=== PATIENT | male | born 2000 | race Hispanic/Latino ===

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

== ENCOUNTER 2022-01-11 21:38 | Emergency (ER) | payer MEDICAID ==
[~2022-01-11] VITALS: Ht 181.6 cm; Wt 64.9 kg
[2022-01-11] MEDS: ACETAMINOPHEN 500 MG TABLET PO ONE (22:45)
[2022-01-11] MEDS: IBUPROFEN 600 MG TABLET PO ONE (23:06)
[2022-01-11] MEDS ORDERED: IBUP-1554 PO (23:34)
[2022-01-11 23:42] VITALS: BP 118/67
== END 2022-01-11 23:43 | disposition home or self-care (01) ==
LOC: EDH 21:38
DX: U07.1 COVID-19 (principal); J45.909 Unspecified asthma, uncomplicated; Z88.0 Allergy status to penicillin; Z79.1 Long term (current) use of non-steroidal anti-inflammatories (NSAID)
CPT/HCPCS: 99283; 87635; 87880; 87804 ×2; C9803

== ENCOUNTER 2022-03-25 11:06 | Emergency (ER) | payer MEDICAID ==
[~2022-03-25] VITALS: Ht 180.3 cm; Wt 64.0 kg
[~2022-03-25 11:06] MED LIST: IBUP-1554 PO
[2022-03-25] MEDS ORDERED: D-ME118S56 PO (12:26)
[2022-03-25] MEDS ORDERED: IBUP-2070 PO (12:26)
[2022-03-25] MEDS ORDERED: GUAIFENESIN-DM 200/20 MG 10 ML PO ONE (12:30)
[2022-03-25] MEDS ORDERED: IBUPROFEN 600 MG TABLET PO ONE (12:30)
[2022-03-25 14:10] VITALS: BP 118/72
== END 2022-03-25 14:12 | disposition home or self-care (01) ==
LOC: EDH 11:06
DX: J02.9 Acute pharyngitis, unspecified (principal); R50.9 Fever, unspecified; R05.9 Cough, unspecified; R06.02 Shortness of breath; Z20.822 Contact with and (suspected) exposure to COVID-19; J45.909 Unspecified asthma, uncomplicated; Z88.0 Allergy status to penicillin
CPT/HCPCS: 99283; 87635; 87880; 87804 ×2; C9803

== ENCOUNTER 2022-08-10 22:37 | Emergency (ER) | payer MEDICAID ==
[~2022-08-10] VITALS: Ht 180.3 cm; Wt 68.0 kg
[~2022-08-10 22:37] MED LIST changes: +D-ME118S56 PO; +IBUP-2070 PO
[2022-08-10 23:13] LABS: BASOPHILS % (AUTO) 0.7 % (0.0-5.0); EOSINOPHILS % (AUTO) 6.1 % (0.0-8.0); HEMATOCRIT 40.4 % (42-54); LYMPHOCYTES % (AUTO) 43.8 % (21.0-51.0); MEAN CORPUSCULAR HEMOGLOBIN 29.9 pg (27.0-33.0); MEAN CORPUSCULAR HGB CONC 34.7 g/dL (32.0-36.0); MEAN CORPUSCULAR VOLUME 86.3 fL (80-100); MONOCYTES % (AUTO) 8.3 % (3.0-13.0); NEUTROPHILS % (AUTO) 40.9 % (40.0-77.0); PLATELET COUNT (AUTO) 197 K/uL (130-400); RED BLOOD CELL COUNT(AUTO) 4.68 MIL/uL (4.50-6.20); RED CELL DISTRIBUTION WIDTH 12.1 % (11.0-15.5); WHITE BLOOD COUNT (AUTO) 5.8 K/uL (4.8-10.8)
[2022-08-10 23:17] LABS: APPEARANCE,URINE CLEAR (CLEAR); BILIRUBIN,URINE NEGATIVE (NEGATIVE); COLOR,URINE LIGHT-YELLOW (YELLOW); GLUCOSE, URINE (UA) NEGATIVE (NEGATIVE); KETONES,URINE NEGATIVE (NEGATIVE); LEUKOCYTE ESTERASE ,URINE NEGATIVE Leu/uL (NEGATIVE); NITRATE,URINE NEGATIVE (NEGATIVE); OCCULT BLOOD,URINE NEGATIVE (NEGATIVE); PROTEIN,URINE NEGATIVE (NEGATIVE); UROBILINOGEN,URINE 0.2 mg/dL (0.2-1.0)
[2022-08-10 23:21] LABS: CREATININE 0.9 mg/dL (0.5-1.5); POTASSIUM 3.9 mmol/L (3.5-5.1)
[2022-08-10 23:24] LABS: AMPHET/METH SCREEN,URINE NEGATIVE (NEGATIVE); BARBITURATE SCREEN, URINE NEGATIVE (NEGATIVE); BENZODIAZEPINES SCREEN,URINE NEGATIVE (NEGATIVE); CANNABINOID SCREEN,URINE NEGATIVE (NEGATIVE); COCAINE SCREEN,URINE NEGATIVE (NEGATIVE); OPIATE SCREEN,URINE NEGATIVE (NEGATIVE); PHENCYCLIDINE SCREEN,URINE NEGATIVE (NEGATIVE)
[2022-08-10 23:26] LABS: ALBUMIN 4.1 g/dL (3.5-5.0); TOTAL PROTEIN, SERUM 7.1 g/dL (6.0-8.3)
[2022-08-10] MEDS ORDERED: DiphenhydrAMINE HCL 50 MG/ML VIAL IV ONE (23:30)
[2022-08-10] MEDS ORDERED: PROCHLORPERAZINE 10MG/2ML INJ IV ONE (23:30)
[2022-08-10] MEDS ORDERED: 0.9%NACL 1000ML 1,000 ML IV ONE (23:30)
[2022-08-11 01:50] VITALS: BP 123/70
[2022-08-11] MEDS ORDERED: KETOROLAC 30MG VIAL (30MG/ML) ONE (02:46)
== END 2022-08-11 03:13 | disposition home or self-care (01) ==
LOC: EDH 23:10
DX: R42 Dizziness and giddiness (principal); J45.909 Unspecified asthma, uncomplicated; Z88.0 Allergy status to penicillin; Z79.899 Other long term (current) drug therapy
CPT/HCPCS: 99284; 96374; 96361; 96375; 80053; 80305; 85025; 36415; 81003; J1200 ×2; J7030; J0780 ×2; J1885

== ENCOUNTER 2023-09-14 19:32 | Emergency (ER) | payer MEDICAID, OTHER ==
[~2023-09-14] VITALS: Ht 180.3 cm; Wt 69.9 kg
[2023-09-14] MEDS: KETOROLAC 60 MG VIAL (30MG/ML) IM ONE (20:51)
[2023-09-14] MEDS ORDERED: IBUP-1493 PO (22:06)
[2023-09-14 22:39] VITALS: BP 122/70; PULSE 90; RESP 18; O2SAT 98
== END 2023-09-14 22:40 | disposition home or self-care (01) ==
LOC: EDH 19:32
DX: S96.812A Strain of other specified muscles and tendons at ankle and foot level, left foot, initial encounter (principal); X58.XXXA Exposure to other specified factors, initial encounter; Y93.89 Activity, other specified; Y92.89 Other specified places as the place of occurrence of the external cause; Y99.8 Other external cause status; Z79.899 Other long term (current) drug therapy; Z88.0 Allergy status to penicillin
CPT/HCPCS: 99283; 73610; 96372; J1885

== ENCOUNTER 2024-04-09 09:52 | Emergency (ER) | payer SELFPAY ==
[~2024-04-09] VITALS: Ht 180.3 cm; Wt 63.5 kg
[~2024-04-09 09:52] MED LIST changes: +IBUP-1493 PO
[2024-04-09] MEDS: DiphenhydrAMINE HCL 50 MG/ML VIAL IV ONE (10:16)
[2024-04-09] MEDS: Solu-medROL 40MG VIAL IVP ONE (10:16)
[2024-04-09] MEDS: 0.9%NACL 1000ML 1,000 ML IV ONE (10:16)
[2024-04-09] MEDS ORDERED: PRED20TA3 PO (11:37)
[2024-04-09 11:57] VITALS: BP 118/70; PULSE 80; RESP 20; TEMP 98.1; O2SAT 98
== END 2024-04-09 12:08 | disposition home or self-care (01) ==
LOC: EDH 09:52
DX: T63.441A Toxic effect of venom of bees, accidental (unintentional), initial encounter (principal); J45.909 Unspecified asthma, uncomplicated; Z88.0 Allergy status to penicillin; Y92.89 Other specified places as the place of occurrence of the external cause
CPT/HCPCS: 99284; 96374; 96361; 96375; J1200; J7030; J2919

== ENCOUNTER 2024-12-11 21:06 | Emergency (ER) | payer SELFPAY ==
[~2024-12-11] VITALS: Ht 180.3 cm; Wt 75.7 kg
[~2024-12-11 21:06] MED LIST changes: +PRED20TA3 PO
[2024-12-11 21:22] VITALS: BP 141/90; PULSE 84; RESP 16; TEMP 98.4; O2SAT 99
--- NOTE | 2024-12-11 21:35 | ERN ---
ED Note History of Present Illness Stated Complaint: HEADACHE Chief Complaint: Headache Time Seen by MD: 21:09 Time Seen by Midlevel: 21:09 Dictation: The patient is a 24-year-old male with past medical history of asthma who presents to the emergency department with complaints of right sided head pain onset . Patient reports the headache is intermediate and reports he got it again today around 6:00 p.m.. Patient denies any head trauma. Denies any use of blood thinners. Denies any nasal congestion or ear pain. Denies any fevers. Denies any dizziness. Patient reports pain is worse with sounds. Allergies: Coded Allergies: Penicillins (Unverified Allergy, Unknown, 01/11/22) Home Meds Active Scripts Prednisone (Prednisone) 20 Mg Tablet, 1 TAB PO TID for 5 Days, #15 TAB 0 Refills Prov:DINA ERAZO DO 04/09/24 Ibuprofen (Motrin/Advil) 800 Mg Tab, 800 MG PO Q8H, #12 TAB Prov:SANJEEV GEE MD 09/14/23 D-Methorphan Hb/P-Epd HCl/Bpm (Xlhwguqzbr-Pphcdrmkjbl-Kx Syr) 118 Ml Syrup, 10 ML PO Q4PRN, #120 ML Prov:ANNE-MARIE CASH [facility] 03/25/22 Ibuprofen (Ibuprofen) 600 Mg Tablet, 600 MG PO Q6H PRN for PAIN, #15 TAB Prov:ANNE-MARIE CASH CHEF 03/25/22 Ibuprofen (Ibu) 600 Mg Tablet, 600 MG PO Q6HPRN PRN for FEVER, #40 TAB Prov:DONATO WATSON Jr. CHEF 01/11/22 Past Medical History Past Medical History: Asthma Surgical History: None Family History: Negative Social History: Negative, Lives with family RN Note Reviewed/Agreed w/PFSH: Yes Review of System Dictation Constitutional: Negative for fever,chills, and weight loss Eyes: Negative for injury, pain,redness, and discharge ENT: Negative for injury,pain or swelling Cardiovascular: Negative for chest pain, palpitations, and edema Respiratory: Negative for shortness of breath, cough, and wheezing, Abdomen/GI: Negative for abdominal pain, nausea, vomiting, diarrhea, and constipation Back: Negative for injury and pain : Negative for injury, bleeding and discharge MS/Extremity: Negative for injury and deformity Skin: Negative for rash, and discoloration Neuro: Negative for weakness, numbness, tingling, and seizure positive for headache Psych: Negative for suicide ideation, homicidal ideation, and hallucinations Initial Vital Sign VS Vital Signs Date Time Temp Pulse Resp B/P (MAP) Pulse Ox O2 Delivery O2 Flow Rate FiO2 12/11/24 21:22 98.4 84 16 141/90 99 Room Air* 0 21 Physical Exam Dictation Vital Signs reviewed General Appearance: Alert, oriented x 3, no acute distress, well developed, nourished. Head and Face: non-traumatic. Eyes: PERRL, pink conjunctivas, eyelid no trauma, anterior chamber with arcus senilis. Ears: Pinnas intact and no signs of trauma or erythema ear canals clear and no discharge TM no erythema Nose: No discharge, no bleeding. Oropharynx: Mouth normal, tongue pink. pharynx clear,no erythema, tonsils no exudates, no abscesses noted, mucous membrane moist Neck: Supple, non-tender, no thyromegaly, no masses, no JVD, no bruits Breast:Deferred Chest:No tenderness, no crepitus, no paradoxical movement, no retractions Lungs:Clear, well-ventilated, symmetric, no rales, no wheezing, no rhonchi, no stridor, good breath sounds bilaterally Heart: Regular rate, regular rhythm, no murmur, no gallops Vascular: no peripheral edema, Abdomen: Soft, positive bowel sounds, nondistended, no guarding, nontender, no rebound, no masses no hepatomegaly, no splenomegaly, no Guallpa's sign, no hernias. Rectal: Deferred Genital: Deferred Neurological: Normal speech, motor function intact, sensory function intact , upper extremities equal in strength, lower extremities equal in strength, no facial droop ,no slurred speech Musculoskeletal: Neck nontender, full range of motion, back nontender, full ran ge of motion, Extremities: nontender, full range of motion Skin: Color pink, dry, no turgor, no rash, no lacerations, no abrasions, no contusions. Lymphatic: Deferred Results (Laboratory/Radiology) Laboratory/Radiology Laboratory Tests Test 12/11/24 21:42 White Blood Count 7.8 K/uL (4.8-10.8) Red Blood Count 4.89 MIL/uL (4.50-6.20) Hemoglobin 14.2 g/dL (14.0-18.0) Hematocrit 40.8 % (42-54) L Mean Corpuscular Volume 83.4 fL (79-99) Mean Corpuscular Hemoglobin 29.0 pg (27.0-33.0) Mean Corpuscular Hemoglobin Concent 34.8 g/dL (32.0-36.0) Red Cell Distribution Width 12.1 % (11.0-15.5) Platelet Count 247 K/uL (130-400) Mean Platelet Volume 9.5 fL (7.5-10.5) Immature Granulocyte % (Auto) 0.3 % (0-1) Neutrophils (%) (Auto) 70.6 % (40.0-77.0) Lymphocytes (%) (Auto) 19.6 % (21.0-51.0) L Monocytes (%) (Auto) 7.7 % (3.0-13.0) Eosinophils (%) (Auto) 1.5 % (0.0-8.0) Basophils (%) (Auto) 0.3 % (0.0-5.0) Neutrophils # (Auto) 5.5 K/uL (1.8-7.7) Lymphocytes # (Auto) 1.5 K/uL (1.0-4.8) Monocytes # (Auto) 0.6 K/uL (0.1-1.0) Eosinophils # (Auto) 0.12 K/uL (0.00-0.70) Basophils # (Auto) 0.02 K/uL (0.00-0.20) Absolute Immature Granulocyte (auto 0.02 K/uL (0-1) Nucleated Red Blood Cells 0.0 % (0.0-0.19) Sodium Level 140 mmol/L (136-145) Potassium Level 3.9 mmol/L (3.5-5.1) Chloride Level 104 mmol/L (101-111) Carbon Dioxide Level 23 mmol/L (21-32) Blood Urea Nitrogen 15 mg/dL (7-18) Creatinine 0.7 mg/dL (0.5-1.3) Glomerular Filtration Rate Calc 134 mL/min (>90) Random Glucose 94 mg/dL (70-105) Total Calcium 9.4 mg/dL (8.5-10.1) Labs Reviewed?: Yes ED Course ED Course Orders Procedure Category Date Status Time Cbc With Differential LAB 12/11/24 Complete 21: 0.9%Nacl 1000ml (Ns PHA 12/11/24 Complete 1000ml) 21:30 Basic Metabolic Panel LAB 12/11/24 Complete 21:26 Acetaminophen 500mg PHA 12/11/24 Complete Tab (Tylenol 500mg T 21:30 Metoclopramide 10 PHA 12/11/24 Complete Mg/2 Ml Vial (Reglan 1 21:30 Diphenhydramine Hcl PHA 12/11/24 Complete (Benadryl Inj) 21:30 Current Medications Medications (Trade) Dose Ordered Sig/Adriana Route PRN Reason Start Time Stop Time Status Last Admin Dose Admin Acetaminophen (TYLenol 500MG TAB) 1,000 mg ONCE ONCE PO 12/11/24 21:30 12/11/24 21:31 DC 12/11/24 21:47 Diphenhydramine HCl (BENAdryl INJ) 25 mg ONCE ONCE IV 12/11/24 21:30 12/11/24 21:31 DC 12/11/24 21:47 Metoclopramide HCl (regLAN 10MG IV) 10 mg ONCE ONCE IVP 12/11/24 21:30 12/11/24 21:31 DC 12/11/24 21:47 Sodium Chloride 1,000 ml @ 0 mls/hr ONCE ONCE IV 12/11/24 21:30 12/11/24 21:31 DC 12/11/24 21:47 Vital Signs Date Time Temp Pulse Resp B/P (MAP) Pulse Ox O2 Delivery O2 Flow Rate FiO2 12/11/24 21: 98.4 84 16 141/90 97 Room Air 0 12/11/24 21:22 98.4 84 16 141/90 99 Room Air* 0 21 Medical Decision Making MDM The patient is a 24-year-old male with past medical history of asthma who presents to the emergency department with complaints of right sided head pain on set . Patient reports the headache is intermediate and reports he got it again today around 6:00 p.m.. Patient denies any head trauma. Denies any use of blood thinners. Denies any nasal congestion or ear pain. Denies any fevers. Denies any dizziness. Patient reports pain is worse with sounds. CBC showed no leukocytosis, no anemia, chemistry showed no electrolyte imba renny, normal renal function. Patient reports feeling better after medication treatment. On physical exam patient continues in no acute distress. Patient is neurologically intact. NIH of 0. No need for any further imaging. Patient ambulatory. Stable vital signs. Labs discussed with the patient and discharge planning discussed with the patient who agrees to follow up with PCP. Patient instructed to return if anything worsens. Differential diagnosis: Tension headache, migraine headache, dehydration, electrolyte imbalance Need for hospitalization: Patient does not meet criteria for hospitalization. There are no social concerns with this patient. DX & DISP Disposition: Discharge Departure Impression: Primary Impression: Migraine headache Condition: Stable Scripts Aspirin/Acetaminophen/Caffeine (Excedrin Extra Strength Caplet) 250 Mg-250 Mg-65 Mg Tablet 2 EACH PO DAILY PRN for headache, #30 TAB Prov: JAYNE YING 12/11/24 Additional Instructions: Your labs were unremarkable. Please follow up with primary doctor in 1-2 days. If anything worsens please return to ER. Taking medications as prescribed. FOLLOW-UP WITH PRIMARY CARE PROVIDER IN 1 TO 2 DAYS. TAKE MEDICATIONS DIRECTED HERE IN THE EMERGENCY ROOM. OKAY TO CONTINUE HOME MEDICATIONS UNLESS OTHERWISE DISCUSSED DURING YOUR VISIT IN THE EMERGENCY ROOM TODAY. RETURN TO YOUR NEAREST EMERGENCY ROOM IF SYMPTOMS WORSEN OR IF THERE IS NO IMPROVEMENT. CALL 911 IF YOU NEED IMMEDIATE ASSISTANCE. TAKE TYLENOL [id number] NEEDED AND IF NO CONTRAINDICATIONS ARE PRESENT. INCREASE ORAL HYDRATION. A WOUND CULTURE OR URINE CULTURE WAS ORDERED HERE IN THE EMERGENCY ROOM DEPARTMENT PLEASE FOLLOW-UP WITH PRIMARY CARE PROVIDER AND ADVISE THEM TO GET REPEAT PORTS FROM OUR FACILITY. IF YOU HAD ANY JUANJOSE WRAP/SPLINTS THAT WERE APPLIED HERE, PLEASE DO NOT REMOVE THEM UNTIL YOU SEE YOUR PRIMARY CARE OR SPECIALTY. Referrals: SELF,REFERRAL (PCP) ANIYA HUERTAS MD Time of Disposition: 22:59 I have reviewed the case, and I agree with, Diagnosis and Plan JAYNE YING Dec 11, 2024 21:35
[2024-12-11] MEDS: metoCLOPRAmide 10 MG/2 ML VIAL IVP ONE (21:47)
[2024-12-11] MEDS: DiphenhydrAMINE HCL 50 MG/ML VIAL IV ONE (21:47)
[2024-12-11] MEDS: acetaMINOPHEN 500 MG TABLET PO ONE (21:47)
[2024-12-11] MEDS: 0.9%NACL 1000ML 1,000 ML IV ONE (21:47)
[2024-12-11 21:48] LABS: BASOPHILS # (AUTO) 0.02 K/uL (0.00-0.20); BASOPHILS % (AUTO) 0.3 % (0.0-5.0); EOSINOPHILS # (AUTO) 0.12 K/uL (0.00-0.70); EOSINOPHILS % (AUTO) 1.5 % (0.0-8.0); HEMATOCRIT 40.8 % (42-54); IMMATURE GRANULOCYTE ABSOLUTE 0.02 K/uL (0-1); LYMPHOCYTES # (AUTO) 1.5 K/uL (1.0-4.8); LYMPHOCYTES % (AUTO) 19.6 % (21.0-51.0); MEAN CORPUSCULAR HGB CONC 34.8 g/dL (32.0-36.0); MEAN CORPUSCULAR VOLUME 83.4 fL (79-99); MONOCYTES # (AUTO) 0.6 K/uL (0.1-1.0); MONOCYTES % (AUTO) 7.7 % (3.0-13.0); NEUTROPHILS # (AUTO) 5.5 K/uL (1.8-7.7); NEUTROPHILS % (AUTO) 70.6 % (40.0-77.0); PLATELET COUNT (AUTO) 247 K/uL (130-400); RED BLOOD CELL COUNT(AUTO) 4.89 MIL/uL (4.50-6.20); RED CELL DISTRIBUTION WIDTH 12.1 % (11.0-15.5); WHITE BLOOD COUNT (AUTO) 7.8 K/uL (4.8-10.8)
[2024-12-11 22:32] LABS: CREATININE 0.7 mg/dL (0.5-1.3); POTASSIUM 3.9 mmol/L (3.5-5.1)
[2024-12-11] MEDS ORDERED: ASPI-1190 PO (23:04)
== END 2024-12-11 23:10 | disposition home or self-care (01) ==
LOC: EDH 21:06
DX: G43.909 Migraine, unspecified, not intractable, without status migrainosus (principal); J45.909 Unspecified asthma, uncomplicated; Z79.52 Long term (current) use of systemic steroids; Z88.0 Allergy status to penicillin
CPT/HCPCS: 99284; 96374; 96375; 80048; 85025; 36415; J1200; J7030; J2765